=== PATIENT | male | born 1950 | race Caucasian/White ===

== ENCOUNTER 2019-10-28 11:51 | Outpatient (CLI) | payer MEDICARE ==
--- NOTE | 2019-10-28 13:37 | CT ---
CHEST CT WITH AND WITHOUT CONTRAST CT ANGIOGRAM OF THE CHEST: HISTORY: Thoracic aortic dissection. COMPARISON: 03/06/2017. TECHNIQUE: CT angiogram of the thoracic aorta is performed in the axial plane. Three-dimensional reformatted theodora ges are submitted for dictation. FINDINGS: Mediastinum: Mildly enlarged prevascular lymph node measuring 1.7 x 1.1 cm. Enlarged right paratrache al lymph node with preserved fatty hilum measuring 2.3 x 1.2 cm. No hematoma. No suspicious masses in the mediastinum. Normal heart size. No significant pericardial fluid. Adequate contrast opacification of the pulmonary arterial system to the level of the lobar arteries. No filling defect to suggest thromboembolism. Upper abdomen: No solid organ abnormality. Hypodensity in the left hepatic lobe measures 0.6 cm and i s unchanged. Trachea and central bronchi are patent. Right lung: Minimal emphysematous changes of the lung apex and lower lobe. No suspicious masses or co nsolidation. Linear opacities in the inferior upper lobe and lower lobe likely represent chronic change. Left lung: Minimal emphysematous changes of the lung apex and lower lobe. Patchy septal thickening al lelo the periphery of the left upper lobe and left lower lobe. There is a focal ill-defined opacity in the left lower lobe, less confluent when compared to the previous examination. This area of opacif ication likely represents scarring. This lesion measures 1.6 x 2.1 cm. No pleural effusion or pneumothorax. No lytic or blastic lesions in the osseous structures. CT angiogram of the aorta: The root of the thoracic aorta is unremarkable. Ascending thoracic aorta, aortic arch, descending tho racic aorta and upper abdominal aorta have an overall normal course and caliber. No aneurysm or dissection. The origin of the carotid arteries has appropriate enhancement and luminal diameter. Ther e is a cervical carotid arteries, vertebral arteries and subclavian arteries are patent. No significant stenosis. The celiac artery origin and superior mesenteric artery origin have appropriate enhancement and luminal diameter. Visualized renal arteries are patent. IMPRESSION: 1. No evidence of aneurysm or dissection. 2. Nonspecific mediastinal lymphadenopathy. 3. Focal infiltrate, compatible with scar. Long-standing stability when compared to the examinations from February 2017. Transcribed Date/Time: 10/28/2019 1:44 PM
== END 2019-10-28 11:52 | disposition home or self-care (01) ==
LOC: BICCT 11:51
PROVIDERS: ATTEND Internal Medicine Cardiovascular Disease
DX: I71.01 Dissection of thoracic aorta (principal); R59.1 Generalized enlarged lymph nodes
CPT/HCPCS: 71270; 82565

== ENCOUNTER 2021-02-08 21:31 | Emergency (ER) | payer MEDICARE ==
[2021-02-08 22:27] LABS: #Basophils 0.1 thou/uL (0.0-0.2); #Eosinphils 0.3 thou/uL (0.0-0.7); #Lymphocytes 3.2 thou/uL (1.20-3.40); #Monocytes 0.9 thou/uL (0.11-0.59); #Neutrophils 4.1 thou/uL (1.40-6.50); %Basophils 1.6 % (0.0-1.0); %Eosinophils 3.1 % (0.0-10.0); %Lymphocytes 37.9 % (21.0-51.0); %Monocytes 10.1 % (0.0-10.0); %Neutrophils 47.4 % (42.0-75.0); Hemoglobin 13.7 g/dL (14.0-18.0); Mean Corpuscular HGB CONC 33.4 g/dL (32.0-36.0); Mean Corpuscular Hemoglobin 34.6 pg (27.0-31.0); Mean Platelet Volume 7.5 fL (7.4-10.4); Platelet Count 261 thou/uL (130-400); RBC Distribution Width 12.4 % (11.5-14.5); Red Blood Cell (RBC) Count 3.96 mill/uL (4.70-6.10); White Blood Cell (WBC) Count 8.6 thou/uL (4.8-10.8)
[2021-02-08 22:48] LABS: ALT (SGPT) 18 U/L (8-55); AST (SGOT) 14 U/L (5-34); Albumin 3.7 g/dL (3.4-4.8); Alkaline Phosphatase 58 U/L (40-110); Anion Gap 10 mmol/L (10-20); BUN (Urea Nitrogen) 19 mg/dL (8.4-25.7); Bilirubin, Total 0.2 mg/dL (0.2-1.2); Calc. Creatinine Clearance 0 mL/min (70-130); Calcium 8.7 mg/dL (7.8-10.44); Carbon Dioxide 26 mmol/L (23-31); Chloride 109 mmol/L (98-107); Globulin 2.4 g/dL (2.4-3.5); Glucose 109 mg/dL (80-115); Lipase 46 U/L (8-78); Potassium 4.4 mmol/L (3.5-5.1); Protein, Total 6.1 g/dL (5.8-8.1); Sodium 141 mmol/L (136-145)
== END 2021-02-09 00:03 | disposition home or self-care (01) ==
LOC: ERS 21:31
DX: R42 Dizziness and giddiness (principal)
CPT/HCPCS: 71045; 80053; 83690; 84484; 85025; 93005